=== PATIENT | female | born 1960 | race Two or more races ===

== ENCOUNTER → 2017-06-06 | Outpatient (CLI) | payer OTHER ==
[~2017-06-06] MED LIST: AMLO5TAB2 PO; DULO1CAP2 PO; FLUT50SP EACH NARE; HYDR-3533 PO; HYDR25TA5 PO; OMEP20TA93 CHEW
--- NOTE | 2017-06-06 10:20 | RADRPT ---
EXAM DATE/TIME: 06/06/2017 09:13 [place] COMPARISON: No previous studies available for comparison. INDICATIONS : Left shoulder pain x 2 1/2 months MEDICAL HISTORY : None. SURGICAL HISTORY : None. ENCOUNTER: Initial ACUITY: 2 months PAIN SCORE: 7/10 LOCATION: Left shoulder FINDINGS: Multiple view examination of the left shoulder demonstrates no evidence of fracture or dislocation. The glenohumeral and acromioclavicular joints are maintained. There is normal range of motion betwee n internal and external rotation. Bony mineralization is normal. CONCLUSION: Unremarkable examination of the left shoulder. Vlad Sevilla Jr., MD on June 06, 2017 at 10:17 Board Certified Radiologist. This report was verified electronically.
== END ==
LOC: HRAD 08:57
PROVIDERS: ATTEND Family Medicine
DX: M19.012 Primary osteoarthritis, left shoulder (principal)
CPT/HCPCS: 73030